=== PATIENT | male | born 1965 | race Caucasian/White ===

== ENCOUNTER 2017-02-19 10:54 | Emergency (ER) | payer OTHER ==
[2017-02-19 10:54] VITALS: BMI 33.4
[2017-02-19 11:04] VITALS: TEMP 98.4; O2SAT 98
[2017-02-19] MEDS ORDERED: cefTRIAXone (Rocephin) 250 mg Inj IM STA (11:36)
--- NOTE | 2017-02-19 11:40 | C.PDOC ---
History Of Present Illness 51 y/o M p/w groin pain x years. Patient states that he has had this groin pain for many years and had it evaluated once before and was told that it was normal because he has syphilis. When asked how he knows this, he states that it hurts a lot so he knows it is syphilis. He denies ever being treated for syphilis. He reports stinging discharge that comes and goes and he also notes bumps that discharge pus that come and go in the L sided groin. He reports feeling warm at night but denies taking his temperature or taking any antipyretics today. He denies vomiting, dyspnea. Time Seen by Provider: 02/19/17 11:19 Chief Complaint (Nursing): Abnormal Skin Integrity Past Medical History Vital Signs: Last Vital Signs Temp 98.4 F 02/19/17 11:04 Pulse 74 02/19/17 11:04 Resp 18 02/19/17 11:04 BP 128/87 02/19/17 11:04 Pulse Ox 98 02/19/17 11:43 - Medical History PMH: Back Problems, Bronchitis Denies: Chronic Kidney Disease Family History: States: Unknown Family Hx - Social History Hx Tobacco Use: Yes Hx Alcohol Use: Yes (3X A WEEK) Hx Substance Use: No - Immunization History Hx Tetanus Toxoid Vaccination: No Hx Influenza Vaccination: No Hx Pneumococcal Vaccination: No Review Of Systems Except As Marked, All Systems Reviewed And Found Negative. Cardiovascular: Negative for: Chest Pain Respiratory: Negative for: Shortness of Breath Physical Exam - Physical Exam Additional Physical Exam Comments: Constitutional: No acute distress. Head: Normocephalic. Atraumatic. Eyes: PERRL. ENT: Moist mucous membranes. Neck: Supple. Cardiovascular: Regular rate. Radial pulses 2+ bilaterally. Chest: No tenderness. Respiratory: Clear to auscultation bilaterally. GI: Soft. Nontender. Nondistended. : Ashy appearance of L sided groin, no erythema or crepitus or abscess. No urethral discharge. Uncircumcised. No erythema at meatus. Testicles nontender. Back: No CVA tenderness. Musculoskeletal: No tenderness or swelling of extremities. Skin: No rashes. Neurologic: Alert, no focal deficit. ED Course And Treatment O2 Sat by Pulse Oximetry: 98 Medical Decision Making Medical Decision Making: Will perform US to evaluate for torsion, epididymitis, etc. Will treat empirically for GC/Chlamydia. Will check for UTI. I instructed the patient to follow up with STD clinic for full STD testing as syphilis can not be diagnosed without testing. HISTORY: Testicular pain TECHNIQUE: Realtime sonography through the scrotum with color and doppler flow. COMPARISON: None Available. FINDINGS: RIGHT TESTICLE: Measures 4.4 x 2.1 x 3.1 cm. Homogeneous echotexture. Blood flow is demonstrated. Tiny punctate calcifications. RIGHT EPIDIDYMIS: Measures approximately 0.8 x 0.8 x 1.3 cm. LEFT TESTICLE: Measures 4.4 x 1.9 x 3.2 cm. Homogeneous echotexture. Blood flow is demonstrated. Tiny punctate calcifications. LEFT EPIDIDYMIS: Measures approximately 0.7 x 0.7 x 1.2 cm. HYDROCELE: Small bilateral hydroceles. VARICOCELE: Small bilateral varicoceles. OTHER FINDINGS: None. IMPRESSION: Microlithiasis. Please note that presence of microlithiasis alone in absence of other risk factors is not an indication for further sonographic surveillance or biopsy. Ultrasound is recommended in follow-up of patient's with increased risk of germ cell tumor, personal or family history of germ cell tumor, maldescent or undescended testes, orchidopexy, testicular atrophy. Small bilateral hydroceles. Small bilateral varicoceles. Disposition - Disposition Referrals: [facility] at [facility] [Outside] Disposition: HOME/ ROUTINE Disposition Time: 12:55 Condition: STABLE Instructions: Varicocele (ED), Hydrocele (ED), Testicle Biopsy (GEN) Forms: Work Excuse - Clinical Impression Clinical Impression: Testicular microlithiasis, Varicocele, Hydrocele
[2017-02-19 12:03] LABS: RBC URINE < 1 /hpf (0-3); URINE BILIRUBIN NEGATIVE (NEGATIVE); URINE BLOOD NEGATIVE (NEGATIVE); URINE COLOR Yellow (YELLOW); URINE GLUCOSE (UA) NORMAL (Normal); URINE KETONE NEGATIVE (NEGATIVE); URINE LEUKOCYTE ESTERASE NEG Leu/uL (Negative); URINE PROTEIN NEGATIVE (NEGATIVE); WBC URINE < 1 /hpf (0-5)
--- NOTE | 2017-02-19 12:53 | US ---
HISTORY: Testicular pain TECHNIQUE: Realtime sonography through the scrotum with color and doppler flow. COMPARISON: None Available. FINDINGS: RIGHT TESTICLE: Measures 4.4 x 2.1 x 3.1 cm. Homogeneous echotexture. Blood flow is demonstrated. Tiny punctate calcifications. RIGHT EPIDIDYMIS: Measures approximately 0.8 x 0.8 x 1.3 cm. LEFT TESTICLE: Measures 4.4 x 1.9 x 3.2 cm. Homogeneous echotexture. Blood flow is demonstrated. Tiny punctate calcifications. LEFT EPIDIDYMIS: Measures approximately 0.7 x 0.7 x 1.2 cm. HYDROCELE: Small bilateral hydroceles. VARICOCELE: Small bilateral varicoceles. OTHER FINDINGS: None. IMPRESSION: Microlithiasis. Please note that presence of microlithiasis alone in absence of other risk factors is not an indication for further sonographic surveillance or biopsy. Ultrasound is recommended in follow-up of patient's with increased risk of germ cell tumor, personal or family history of germ cell tumor, maldescent or undescended testes, orchidopexy, testicular atrophy. Small bilateral hydroceles. Small bilateral varicoceles.
[2017-02-19 13:19] VITALS: BP 142/85; PULSE 81; RESP 16
== END 2017-02-19 13:19 | disposition home or self-care (01) ==
LOC: C.ER 10:54
DX: N43.3 Hydrocele, unspecified (principal); I86.1 Scrotal varices; N50.89 Other specified disorders of the male genital organs
CPT/HCPCS: 76870; 81001; 87086; 87491; 87591; 96372; 99284; J0696; J1885

== ENCOUNTER 2017-10-10 09:31 | Emergency (ER) | payer MEDICAID, OTHER ==
[2017-10-10 09:48] VITALS: BMI 35.5
[2017-10-10 09:49] VITALS: BP 136/95; PULSE 77; RESP 16; TEMP 99.3; O2SAT 98
[2017-10-10] MEDS ORDERED: Naproxen 550 mg Tab PO STA (10:39)
[2017-10-10] MEDS ORDERED: Naproxen 550 mg Tab PO ONE (11:13)
--- NOTE | 2017-10-10 11:13 | C.PDOC ---
History Of Present Illness Pt fell last week injuring his head and left hand. He denies any headache or head symptoms, but is here today because of persistent pain and swelling of his left hand. - HPI Time Seen by Provider: 10/10/17 10:16 Chief Complaint (Nursing): Trauma History Per: Patient Injury Occurred (Timing): Days Ago: (7) Location Of Injury: Right: Face, Left: Hand Severity: Moderate Additional History Per: Prior Records Past Medical History Reviewed: Historical Data, Nursing Documentation, Vital Signs Vital Signs: Last Vital Signs Temp 99.3 F 10/10/17 09:49 Pulse 77 10/10/17 09:49 Resp 16 10/10/17 09:49 BP 136/95 H 10/10/17 09:49 Pulse Ox 98 10/10/17 11:17 - Medical History PMH: Back Problems, Bronchitis Family History: States: Unknown Family Hx - Social History Hx Tobacco Use: Yes Hx Alcohol Use: Yes (3X A WEEK) Hx Substance Use: Yes - Immunization History Hx Tetanus Toxoid Vaccination: No Hx Influenza Vaccination: No Hx Pneumococcal Vaccination: No Review Of Systems Except As Marked, All Systems Reviewed And Found Negative. Constitutional: Negative for: Fever Eyes: Negative for: Pain, Vision Change Cardiovascular: Negative for: Chest Pain Respiratory: Negative for: Shortness of Breath, Hemoptysis Gastrointestinal: Negative for: Vomiting, Abdominal Pain Musculoskeletal: Positive for: Hand Pain (left). Negative for: Neck Pain, Back Pain Skin: Positive for: Bruising Neurological: Negative for: Weakness, Numbness, Seizures, Altered Mental Status , Headache Physical Exam - Physical Exam Appears: Non-toxic, No Acute Distress Skin: Warm, Dry Head: Abrasion (healing abrasions on right side of face), No Laceration Eye(s): bilateral: PERRL, EOMI Neck: Normal ROM, No Midline Cervical Tenderness, No Step Off Deformity, Supple Chest: Symmetrical, No Deformity, No Tenderness Cardiovascular: Rhythm Regular Respiratory: Normal Breath Sounds, No Accessory Muscle Use Gastrointestinal/Abdominal: Soft, No Tenderness Back: No CVA Tenderness, No Vertebral Tenderness Extremity: Normal ROM, Tenderness (left hand), Capillary Refill (wnl), Swelling (left hand) Pulses: Left Radial: Normal Neurological/Psych: Oriented x3, Normal Speech, Normal Cognition, Normal Cranial Nerves, Normal Motor, Normal Sensation ED Course And Treatment O2 Sat by Pulse Oximetry: 98 Pulse Ox Interpretation: Normal - Other Rad Left hand x-rays X-Ray: Interpreted by Me, Viewed By Me Interpretation: IMPRESSION: Comminuted displaced oblique fractures involving the 4th metacarpal. Soft tissue swelling. Progress Note: Ulnar gutter splint was placed on left side by medical technical writer and checked by me. Reassessment Condition: Improved Disposition Counseled Patient/Family Regarding: Studies Performed, Diagnosis, Need For Followup, Rx Given - Disposition Referrals: Homer Rivera MD [Staff Provider] - [facility] [Outside] Disposition: HOME/ ROUTINE Disposition Time: 11:19 Condition: IMPROVED Additional Instructions: Follow up with a Hand specialist within 1-2 weeks for further evaluation and treatment. Keep your splint clean and dry until your see the specialist. Return to the ER if you develop severe pain, weakness, numbness, worsening of symptoms or if you have any other concerns. Prescriptions: Naproxen [Naprosyn] 1 tab PO BID PRN #20 tab PRN Reason: Pain Instructions: Hand Fracture (ED), Splint Care (ED) Forms: [employer] (Estonian) Print Language: VIETNAMESE - Clinical Impression Clinical Impression: Fracture of fourth metacarpal bone of left hand
--- NOTE | 2017-10-10 11:15 | RAD ---
PROCEDURE: Left Hand Radiographs. HISTORY: Pain/swelling s/p injury 1 week ago COMPARISON: None available. FINDINGS: BONES: Comminuted displaced oblique fractures involving the 4th metacarpal. JOINTS: No dislocation. SOFT TISSUES: Soft tissue swelling. No evidence of radiopaque foreign body. OTHER FINDINGS: None. IMPRESSION: Comminuted displaced oblique fractures involving the 4th metacarpal. Soft tissue swelling.
== END 2017-10-10 11:29 | disposition home or self-care (01) ==
LOC: C.ER 09:31
DX: S62.395A Other fracture of fourth metacarpal bone, left hand, initial encounter for closed fracture (principal); W18.30XA Fall on same level, unspecified, initial encounter

== ENCOUNTER 2019-01-15 09:19 | Emergency (ER) | payer MEDICAID, OTHER ==
[2019-01-15 09:19] VITALS: BMI 35.5
[2019-01-15 09:24] VITALS: BP 143/84; PULSE 76; RESP 20; TEMP 98.4; O2SAT 99
[2019-01-15] MEDS ORDERED: Tramadol 25 mg PO STA (09:38)
[2019-01-15] MEDS ORDERED: Tramadol 25 mg ONE (09:54)
--- NOTE | 2019-01-15 09:59 | C.PDOC ---
History Of Present Illness 53 year old male presents to ED with pain and swelling to the left cheek for the past 5 days. Patient is also complaining of associated fever and chills. Patient reports that he took ibuprofen and noted mild relief. Patient also reports that he has been taking antibiotics that he obtained from a friend yesterday. He notes mild improvement. Patient is currently afebrile and reports 10/10 pain in the gum and cheek area on the left side of the third upper molar. Patient denies nausea, vomiting, chest pain, and SOB. Time Seen by Provider: 01/15/19 09:31 Chief Complaint (Nursing): Dental Pain History Per: Patient History/Exam Limitations: no limitations Onset/Duration Of Symptoms: Days (5) Current Symptoms Are (Timing): Still Present Pain Scale Rating Of: 10 Quality: Positive for: "Pain" Past Medical History Reviewed: Historical Data, Nursing Documentation, Vital Signs Vital Signs: Last Vital Signs Temp 98.4 F 01/15/19 09:21 Pulse 76 01/15/19 09:21 Resp 20 01/15/19 09:21 BP 143/84 01/15/19 09:21 Pulse Ox 99 01/15/19 09:21 - Medical History PMH: Back Problems, Bronchitis Denies: Chronic Kidney Disease Surgical History: No Surg Hx Family History: States: Unknown Family Hx - Social History Hx Tobacco Use: Yes Hx Alcohol Use: Yes (3X A WEEK) Hx Substance Use: Yes (marijuana) - Immunization History Hx Tetanus Toxoid Vaccination: No Hx Influenza Vaccination: No Hx Pneumococcal Vaccination: No Review Of Systems Constitutional: Positive for: Fever, Chills. Negative for: Weakness ENT: Positive for: Mouth Pain (left cheek), Mouth Swelling (left cheek) Cardiovascular: Negative for: Chest Pain Respiratory: Negative for: Shortness of Breath Gastrointestinal: Negative for: Nausea, Vomiting Neurological: Negative for: Weakness, Numbness, Dizziness Physical Exam - Physical Exam Appears: Non-toxic Skin: Normal Color, Warm, Dry Head: Atraumatic, Normacephalic Oral Mucosa: Other (swelling to the left cheek) Teeth: Other (minimal dental decay) Gingiva: Abscess (palpable abscess to the left upper gum/ cheek area) Neck: Normal ROM, Supple Chest: Symmetrical, No Deformity Cardiovascular: Rhythm Regular, No Murmur Respiratory: No Accessory Muscle Use Neurological/Psych: Oriented x3, Normal Speech, Normal Cognition ED Course And Treatment O2 Sat by Pulse Oximetry: 99 (in RA) Medical Decision Making Medical Decision Making: Impression: 53 year old male with pain and swelling to the left cheek Plan: Patient given Tramadol PO , Ibuprofen PO, and Motrin PO. After patient was treated he stated that he was on his way to see his dentist. Upon reassessment, patient is in no distress, is resting comfortably,remains afebrile, and is stable for discharge. Discussed results and plan with patient who expresses understanding. All questions answered and there is agreement with the plan to discharge home with instructions. Patient stable for discharge. Return if symptoms persist or worsen. Disposition Counseled Patient/Family Regarding: Diagnosis, Need For Followup, Rx Given - Disposition Disposition: HOME/ ROUTINE Disposition Time: 09:57 Condition: STABLE Prescriptions: Ibuprofen [Motrin] 600 mg PO TID #15 tab Penicillin VK [Penicillin VK Tab] 2 tab PO BID #28 tab traMADol/Acetaminophen [Ultracet 37.5/325 mg] 1 tab PO TID PRN #15 tab PRN Reason: pain Instructions: Dental Pain (DC) Forms: [facility] (Bahraini), Gen Discharge Inst [place]raini - POA Present On Arrival: None - Clinical Impression Clinical Impression: Dental abscess - Scribe Statement The provider has reviewed the documentation as recorded by the Scribe (Nova Gilliam) All medical record entries made by the Scribe were at my direction and personally dictated by me. I have reviewed the chart and agree that the record accurately reflects my personal performance of the history, physical exam, medical decision making, and the department course for this patient. I have also personally directed, reviewed, and agree with the discharge instructions and disposition.
== END 2019-01-15 10:25 | disposition home or self-care (01) ==
LOC: C.ER 09:19
DX: K04.7 Periapical abscess without sinus (principal)

== ENCOUNTER 2019-01-26 10:55 | Emergency (ER) | payer MEDICAID, OTHER | END 2019-01-26 12:33 | disposition home or self-care (01) | LOC: C.ER 10:55 ==